=== PATIENT | female | born 1975 | race Caucasian/White ===

== ENCOUNTER 2017-05-14 15:18 | Emergency (ER) | payer MEDICAID, OTHER ==
[~2017-05-14] VITALS: Ht 162.6 cm; Wt 65.8 kg
[~2017-05-14 15:18] MED LIST: TIZA4TAB11 PO; TOPI50TA PO
[2017-05-14] MEDS ORDERED: LEVE250T2 PO (15:29)
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
[2017-05-14] MEDS ORDERED: HYDROMORPHONE 1 MG/1 ML DISP.SYRIN IM ONE (16:00)
[2017-05-14] MEDS ORDERED: PROMETHAZINE HCL 25 MG/1 ML VIAL IM ONE (16:00)
[2017-05-14] MEDS ORDERED: HYDROMORPHONE 2 MG/1 ML DISP.SYRIN ONE (16:17)
[2017-05-14] MEDS ORDERED: PROMETHAZINE HCL 25 MG/1 ML VIAL ONE (16:18)
--- NOTE | 2017-05-14 16:40 | NUR ---
pt did not feel any pain relief just upon d/c. Gave pt RX and d/c instructions, verbalized understanding.
== END 2017-05-14 16:48 | disposition home or self-care (01) ==
LOC: ER 15:18
DX: G44.009 Cluster headache syndrome, unspecified, not intractable (principal); Z88.0 Allergy status to penicillin; M54.5 Low back pain; Z90.49 Acquired absence of other specified parts of digestive tract; G40.909 Epilepsy, unspecified, not intractable, without status epilepticus
CPT/HCPCS: A4663; J1170; J2550

== ENCOUNTER 2017-07-19 17:45 | Emergency (ER) | payer OTHER ==
[~2017-07-19] VITALS: Ht 165.1 cm; Wt 65.8 kg
[~2017-07-19 17:45] MED LIST changes: +LEVE250T2 PO; -TIZA4TAB11 PO
--- NOTE | 2017-07-19 18:16 | NUR ---
US TECH AT BEDSIDE PERFORMING MSE.
[2017-07-19 18:43] LABS: BASOPHILS % (AUTO) 0.5 % (0.0-2.0); EOSINOPHILS # (AUTO) 0.1 K/uL (0.0-0.7); EOSINOPHILS % (AUTO) 1.4 % (0.0-7.0); HEMATOCRIT 41.2 % (37-47); HEMOGLOBIN 13.8 G/DL (12.0-16.0); LYMPHOCYTES # (AUTO) 2.2 K/UL (0.8-4.8); LYMPHOCYTES % (AUTO) 24.2 % (20.5-51.5); MEAN CORPUSCULAR HGB CONC 34 g/dL (32.0-37.0); MEAN CORPUSCULAR VOLUME 92.3 FL (81.0-99.0); MONOCYTES # (AUTO) 0.5 K/UL (0.1-1.30); MONOCYTES % (AUTO) 5.6 % (0.0-11.0); NEUTROPHILS # (AUTO) 6.5 K/UL (1.8-8.9); NEUTROPHILS % (AUTO) 68.3 % (38.5-71.5); PLATELET COUNT (AUTO) 274 K/UL (150-450); RED BLOOD CELL COUNT(AUTO) 4.47 MIL/UL (4.2-5.4); WHITE BLOOD COUNT (AUTO) 9.3 K/UL (4.0-11.2)
[2017-07-19 18:55] LABS: CARBON DIOXIDE 30 mmol/L (21-32); CHLORIDE 109 mmol/L (98-107); CREATININE 0.8 mg/dL (0.6-1.3); GLUCOSE 106 mg/dL (74-106); POTASSIUM 4.1 mmol/L (3.5-5.1); UREA NITROGEN, BLOOD 11 mg/dL (7-18)
[2017-07-19 19:00] LABS: ALANINE AMINOTRANSFERASE 16 U/L (14-59); ALKALINE PHOSPHATASE 71 U/L (50-136); ASPARTATE AMINOTRANSFERASE 12 U/L (15-37); BILIRUBIN,DIRECT < 0.1 mg/dL (0.0-0.2); BILIRUBIN,TOTAL 0.2 mg/dL (0.2-1.0); LIPASE 135 U/L (73-393); TOTAL PROTEIN, SERUM 6.7 g/dL (6.4-8.2)
[2017-07-19] MEDS ORDERED: KETOROLAC TROMETHAMINE 30 MG INJ IM ONE (19:15)
--- NOTE | 2017-07-19 19:20 | NUR ---
PATIENT OUT OF UNIT FOR CT SCAN VIA GURNY
[2017-07-19] MEDS ORDERED: KETOROLAC TROMETHAMINE 30 MG INJ ONE (19:30)
--- NOTE | 2017-07-19 19:40 | NUR ---
PATIENT BACK FROM CT SCAN WITH NO DISTRESS NOTED
[2017-07-19 20:16] LABS: *BILIRUBIN,URIN NEGATIVE (NEGATIVE); *BLOOD, URINE Trace-intact (NEGATIVE); *CLARITY,URINE CLEAR (CLEAR); *COLOR,URINE YELLOW (YELLOW); *KETONES,URINE NEGATIVE (NEGATIVE); *PROTEIN,URINE NEGATIVE (NEGATIVE); *UROBILINOGEN,URINE 0.2 E.U./dl (NORMAL); LEUKOCYTE ESTERASE ,URINE NEGATIVE (NEGATIVE); NITRITE, URINE NEGATIVE (NEGATIVE); UGLUCOSE NEGATIVE (NEGATIVE)
[2017-07-19 20:21] LABS: BACTERIA,URINE FEW /HPF (NONE SEEN); RBC,URINE 0-3 /HPF (0-3); SQUAMOUS EPITHELIAL CELL,UR MODERATE /HPF (NONE SEEN)
[2017-07-19] MEDS ORDERED: MORPHINE SULFATE 4 MG/1 ML DISP.SYRIN IM ONE (21:00)
[2017-07-19] MEDS ORDERED: ONDANSETRON 4 MG/2 ML VIAL IM ONE (21:00)
[2017-07-19] MEDS ORDERED: MORPHINE SULFATE 4 MG/1 ML DISP.SYRIN ONE (21:20)
[2017-07-19] MEDS ORDERED: ONDANSETRON 4 MG/2 ML VIAL ONE (21:20)
--- NOTE | 2017-07-19 21:34 | NUR ---
Patient discharged to home in stable conditon. Written and verbal after care instructions given. Patient verbalizes understanding of instructions.
[2017-07-19 21:36] VITALS: BP 128/75
== END 2017-07-19 21:36 | disposition home or self-care (01) ==
LOC: ER 17:50
DX: K59.00 Constipation, unspecified (principal); R10.32 Left lower quadrant pain; Z88.0 Allergy status to penicillin; N83.201 Unspecified ovarian cyst, right side
CPT/HCPCS: 36415; 70030-TC; 76856; 83690; 84703; 85025; A4663; J1885; J2270; J2405

== ENCOUNTER 2018-12-11 20:48 | Emergency (ER) | payer SELFPAY ==
[~2018-12-11] VITALS: Ht 162.6 cm; Wt 65.8 kg
[2018-12-11 21:20] LABS: *BILIRUBIN,URIN NEGATIVE (NEGATIVE); *BLOOD, URINE 2+ (NEGATIVE); *CLARITY,URINE SLIGHTLY CLOUDY (CLEAR); *COLOR,URINE YELLOW (YELLOW); *KETONES,URINE NEGATIVE (NEGATIVE); *UROBILINOGEN,URINE 0.2 E.U./dl (NORMAL); LEUKOCYTE ESTERASE ,URINE TRACE (NEGATIVE); NITRITE, URINE NEGATIVE (NEGATIVE); UGLUCOSE NEGATIVE (NEGATIVE)
[2018-12-11 21:27] LABS: *URINE HCG, QUAL NEGATIVE (NEGATIVE)
[2018-12-11 21:37] LABS: BACTERIA,URINE FEW /HPF (NONE SEEN); SQUAMOUS EPITHELIAL CELL,UR FEW /HPF (NONE SEEN); WBC,URINE 20-50 /HPF (0-3)
--- NOTE | 2018-12-11 21:44 | NUR ---
Pt placed in room 3A.
--- NOTE | 2018-12-11 22:15 | NUR ---
Patient discharged to home in stable conditon. Written and verbal after care instructions given. Patient verbalizes understanding of instructions.
[2018-12-11 22:16] VITALS: BP 147/86
== END 2018-12-11 22:17 | disposition home or self-care (01) ==
LOC: ER 20:48
DX: N39.0 Urinary tract infection, site not specified (principal); M54.9 Dorsalgia, unspecified; F17.200 Nicotine dependence, unspecified, uncomplicated; Z88.0 Allergy status to penicillin; Z91.012 Allergy to eggs; Z79.899 Other long term (current) drug therapy
CPT/HCPCS: 84703; 87077; 87086; A4663

== ENCOUNTER 2019-04-24 18:47 | Emergency (ER) | payer OTHER ==
[~2019-04-24] VITALS: Ht 165.1 cm; Wt 69.4 kg
[2019-04-24] MEDS ORDERED: KETOROLAC TROMETHAMINE 15 MG INJ IV ONE (19:15)
[2019-04-24] MEDS ORDERED: ONDANSETRON 4 MG/2 ML VIAL IV ONE (19:15)
[2019-04-24] MEDS ORDERED: HYDROMORPHONE 1 MG/1 ML DISP.SYRIN IV ONE ×2 (19:15→22:00)
[2019-04-24 19:19] LABS: *BILIRUBIN,URIN 1+ (NEGATIVE); *BLOOD, URINE 3+ (NEGATIVE); *KETONES,URINE NEGATIVE (NEGATIVE); LEUKOCYTE ESTERASE ,URINE TRACE (NEGATIVE); NITRITE, URINE NEGATIVE (NEGATIVE); UGLUCOSE NEGATIVE (NEGATIVE)
[2019-04-24] MEDS ORDERED: HYDROMORPHONE 1 MG/1 ML DISP.SYRIN ONE ×2 (19:23→21:56)
[2019-04-24] MEDS ORDERED: KETOROLAC TROMETHAMINE 15 MG INJ ONE (19:23)
[2019-04-24] MEDS ORDERED: ONDANSETRON 4 MG/2 ML VIAL ONE (19:24)
--- NOTE | 2019-04-24 19:25 | NUR ---
patient c/o bilateral flank pain x1 month. Patient states has Hx of kidney stones is already following up with urologist. Patient here requesting for ct scan and will follow up with urology next month.
[2019-04-24 19:26] LABS: BASOPHILS % (AUTO) 0.4 % (0.0-2.0); EOSINOPHILS # (AUTO) 0.2 K/uL (0.0-0.7); HEMATOCRIT 37.4 % (31.2-41.9); HEMOGLOBIN 12.7 g/dL (10.9-14.3); LYMPHOCYTES # (AUTO) 1.8 K/uL (20.0-40.0); LYMPHOCYTES % (AUTO) 23.3 % (20.5-51.5); MEAN CORPUSCULAR HGB CONC 34 g/dL (32.3-35.6); MEAN CORPUSCULAR VOLUME 94.2 fL (75.5-95.3); MONOCYTES # (AUTO) 0.6 K/uL (2.0-10.0); MONOCYTES % (AUTO) 7.4 % (0.0-11.0); NEUTROPHILS # (AUTO) 5.1 K/uL (1.8-8.9); NEUTROPHILS % (AUTO) 66.9 % (38.5-71.5); PLATELET COUNT (AUTO) 262 K/uL (179-408); RED BLOOD CELL COUNT(AUTO) 3.97 MIL/uL (3.63-4.92); WHITE BLOOD COUNT (AUTO) 7.6 K/uL (3.8-11.8)
[2019-04-24 19:28] LABS: *CLARITY,URINE BLOODY (CLEAR)
[2019-04-24 19:29] LABS: *COLOR,URINE Brown (YELLOW)
[2019-04-24 19:31] LABS: MUCUS,URINE MODERATE /LPF (0-FEW); RBC,URINE TNTC /HPF (0-3); SQUAMOUS EPITHELIAL CELL,UR MODERATE /HPF (NONE SEEN)
[2019-04-24 19:32] LABS: *URINE HCG, QUAL NEGATIVE (NEGATIVE)
[2019-04-24 19:36] LABS: CARBON DIOXIDE 26 mmol/L (21-32); CHLORIDE 105 mmol/L (98-107); CREATININE 0.9 mg/dL (0.6-1.3); GLUCOSE 88 mg/dL (74-106); POTASSIUM 3.8 mmol/L (3.5-5.1); UREA NITROGEN, BLOOD 17 mg/dL (7-18)
[2019-04-24 19:41] LABS: ALANINE AMINOTRANSFERASE 17 U/L (14-59); ALKALINE PHOSPHATASE 81 U/L (50-136); ASPARTATE AMINOTRANSFERASE 12 U/L (15-37); BILIRUBIN,DIRECT < 0.1 mg/dL (0.0-0.2); BILIRUBIN,TOTAL 0.1 mg/dL (0.2-1.0); LIPASE 126 U/L (73-393); TOTAL PROTEIN, SERUM 6.8 g/dL (6.4-8.2)
--- NOTE | 2019-04-24 20:43 | NUR ---
Patient out of unit for ct scan via wheelchair
--- NOTE | 2019-04-24 22:59 | NUR ---
No radiology read on ct of abdomen and pelvis. Called [facility] Hotline . Waiting for imaging read
[2019-04-24] MEDS ORDERED: CEFTRIAXONE 1 G in IV DEXTROSE 5% 50 ML IV ONE (23:30)
[2019-04-24] MEDS ORDERED: SULF1TAB48 PO (23:55)
[2019-04-25] MEDS ORDERED: CEFTRIAXONE 1 G VIAL ONE
[2019-04-25] MEDS ORDERED: HYDROMORPHONE 1 MG/1 ML DISP.SYRIN IV ONE (00:15)
[2019-04-25] MEDS ORDERED: HYDROMORPHONE 2 MG/1 ML DISP.SYRIN ONE ×2 (00:16→01:23)
--- NOTE | 2019-04-25 00:40 | NUR ---
Waiting for transfer info from case management to transfer to [facility]
--- NOTE | 2019-04-25 01:25 | NUR ---
Jake engle mangement from [facility] called back for transfer info. Patient will be going to [facility] room 2259. Call for report . Accepting MD is Ofelia Arguello
--- NOTE | 2019-04-25 01:33 | NUR ---
Called [facility] for transfer. ETA is 45mins. Trip #[id number]
--- NOTE | 2019-04-25 02:03 | NUR ---
Gave SBAR report to Chanelle Aaron from [facility]
--- NOTE | 2019-04-25 02:24 | NUR ---
Gave SBAR report to [facility] unit 115
== END 2019-04-25 02:27 | disposition short-term general hospital (02) ==
LOC: ER 18:47
DX: N20.0 Calculus of kidney (principal); N39.0 Urinary tract infection, site not specified; N13.9 Obstructive and reflux uropathy, unspecified; Z71.6 Tobacco abuse counseling; F17.290 Nicotine dependence, other tobacco product, uncomplicated; Z88.0 Allergy status to penicillin; Z91.012 Allergy to eggs; Z79.899 Other long term (current) drug therapy
CPT/HCPCS: 36415; 74176; 80048; 80076; 81000; 81001; 83690; 84703; 85025; 87086; 96365; 96375; 96376 ×2; 99285; 99406; J0696; J1170 ×4; J1885; J2405; J7060; A4663; J7030

== ENCOUNTER 2019-07-13 09:31 | Emergency (ER) | payer OTHER ==
[~2019-07-13] VITALS: Ht 162.6 cm; Wt 70.3 kg
[~2019-07-13 09:31] MED LIST changes: -LEVE250T2 PO; +SULF1TAB48 PO
[2019-07-13 09:55] LABS: *BILIRUBIN,URIN NEGATIVE (NEGATIVE); *CLARITY,URINE CLOUDY (CLEAR); *COLOR,URINE YELLOW (YELLOW); *KETONES,URINE NEGATIVE (NEGATIVE); *UROBILINOGEN,URINE 0.2 E.U./dl (NORMAL); LEUKOCYTE ESTERASE ,URINE 1+ (NEGATIVE); NITRITE, URINE NEGATIVE (NEGATIVE); UGLUCOSE NEGATIVE (NEGATIVE)
[2019-07-13 09:58] LABS: *URINE HCG, QUAL NEGATIVE (NEGATIVE)
[2019-07-13 09:59] LABS: *BLOOD, URINE TRACE (NEGATIVE)
[2019-07-13] MEDS ORDERED: ONDANSETRON ODT 4 MG TAB.RAPDIS SL ONE (10:15)
[2019-07-13 10:24] LABS: BACTERIA,URINE MODERATE /HPF (NONE SEEN)
[2019-07-13] MEDS ORDERED: ONDANSETRON ODT 4 MG TAB.RAPDIS ONE (10:24)
[2019-07-13 10:26] LABS: SQUAMOUS EPITHELIAL CELL,UR MANY /HPF (NONE SEEN)
[2019-07-13] MEDS ORDERED: OXYCODONE/APAP 5-325 MG TABLET PO ONE (10:30)
[2019-07-13] MEDS ORDERED: METOCLOPRAMIDE HCL 10 MG/2 ML VIAL IM ONE (10:30)
[2019-07-13] MEDS ORDERED: IBUPROFEN 600 MG TABLET PO ONE (10:30)
[2019-07-13] MEDS ORDERED: METOCLOPRAMIDE HCL 10 MG/2 ML VIAL ONE (10:31)
[2019-07-13] MEDS ORDERED: OXYCODONE/APAP 5-325 MG TABLET ONE (10:31)
[2019-07-13] MEDS ORDERED: IBUPROFEN 600 MG TABLET ONE (10:31)
[2019-07-13 10:32] LABS: URINE AMORPHOUS PHOSPHATES FEW /HPF
--- NOTE | 2019-07-13 11:43 | NUR ---
ER AT BEDSIDE FOR PELVIC EXAM W/ FEMALE CHAPPERONE, ANIVAL Aly RN.
[2019-07-13 11:55] VITALS: BP 133/76
--- NOTE | 2019-07-13 11:55 | NUR ---
Patient discharged to home in stable conditon. Written and verbal after care instructions given. Patient verbalizes understanding of instructions. ALL BELONGINGS W/ PT. PT SELF-AMBULATED W/O DIFFICULTY.
== END 2019-07-13 11:55 | disposition home or self-care (01) ==
LOC: ER 09:31
DX: N39.0 Urinary tract infection, site not specified (principal); R51 Headache; M54.5 Low back pain; R11.2 Nausea with vomiting, unspecified; F17.200 Nicotine dependence, unspecified, uncomplicated; Z88.0 Allergy status to penicillin; Z91.012 Allergy to eggs; Z79.899 Other long term (current) drug therapy
CPT/HCPCS: 36415; 81000; 81001; 84702; 84703; 87086; 96372; 99284; J2765; A4663; Q0162

== ENCOUNTER 2019-07-26 04:26 | Emergency (ER) | payer SELFPAY ==
[~2019-07-26] VITALS: Ht 170.2 cm; Wt 54.4 kg
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
[2019-07-26] MEDS ORDERED: diphenhydrAMINE 50 MG CAPSULE PO ONE (05:00)
[2019-07-26] MEDS ORDERED: ONDANSETRON ODT 4 MG TAB.RAPDIS SL ONE (05:00)
[2019-07-26] MEDS ORDERED: HYDROMORPHONE 1 MG/1 ML DISP.SYRIN IM ONE ×2 (05:00→05:45)
[2019-07-26] MEDS ORDERED: HYDROMORPHONE 2 MG/1 ML DISP.SYRIN ONE ×2 (05:05→05:50)
[2019-07-26] MEDS ORDERED: diphenhydrAMINE 50 MG CAPSULE ONE (05:05)
[2019-07-26] MEDS ORDERED: ONDANSETRON ODT 4 MG TAB.RAPDIS ONE (05:05)
--- NOTE | 2019-07-26 05:10 | NUR ---
patient taken down for CT scan with matt general maintenance technician
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
[2019-07-26 05:55] VITALS: BP 112/78
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
== END 2019-07-26 05:57 | disposition home or self-care (01) ==
LOC: ER 04:30
DX: S00.83XA Contusion of other part of head, initial encounter (principal); T74.61XA Adult forced labor exploitation, confirmed, initial encounter; F17.290 Nicotine dependence, other tobacco product, uncomplicated; Z71.6 Tobacco abuse counseling; Z88.0 Allergy status to penicillin; Z91.012 Allergy to eggs; Y04.2XXA Assault by strike against or bumped into by another person, initial encounter; Y93.89 Activity, other specified; Y92.89 Other specified places as the place of occurrence of the external cause; Y99.8 Other external cause status
CPT/HCPCS: 70450; 70490; 96372 ×2; 99284; 99406; J1170 ×2; Q0163; A4663; Q0162

== ENCOUNTER 2019-10-17 18:41 | Emergency (ER) | payer MEDICAID ==
[~2019-10-17] VITALS: Ht 162.6 cm; Wt 76.2 kg
[2019-10-17] MEDS ORDERED: HYDROCODONE/APAP 5-325MG TABLET PO ONE (19:30)
[2019-10-17] MEDS ORDERED: IBUPROFEN 600 MG TABLET PO ONE (19:30)
[2019-10-17] MEDS ORDERED: OXYCODONE/APAP 5-325 MG TABLET PO ONE (19:30)
[2019-10-17] MEDS ORDERED: diphenhydrAMINE 50 MG CAPSULE PO ONE (19:30)
[2019-10-17] MEDS ORDERED: OXYCODONE/APAP 5-325 MG TABLET ONE (19:43)
[2019-10-17] MEDS ORDERED: diphenhydrAMINE 25 MG CAP PO ONE (19:43)
[2019-10-17 20:22] LABS: *URINE HCG, QUAL NEGATIVE (NEGATIVE)
--- NOTE | 2019-10-17 20:42 | NUR ---
Patient discharged to home in stable conditon. Written and verbal after care instructions given. Patient verbalizes understanding of instructions. ambulatory w/ stable gait all belongings w/ pt boyfriend will drive home
[2019-10-17 20:43] VITALS: BP 143/82
== END 2019-10-17 20:58 | disposition home or self-care (01) ==
LOC: ER 18:48
DX: R05 Cough (principal); R07.89 Other chest pain; F17.200 Nicotine dependence, unspecified, uncomplicated; Z88.0 Allergy status to penicillin; Z91.012 Allergy to eggs
CPT/HCPCS: 71045; 84703; 87400; 93005; 99284; Q0163; A4663

== ENCOUNTER 2020-03-02 13:08 | Emergency (ER) | payer MEDICAID ==
[~2020-03-02] VITALS: Ht 165.1 cm; Wt 70.8 kg
--- NOTE | 2020-03-02 13:22 | NUR ---
PT IS IN ROOM #4A DR HAMEED EVALUATED THE PT.
[2020-03-02] MEDS ORDERED: [UNRECOGNIZED DRUG - OTHER] PO (13:28)
[2020-03-02] MEDS ORDERED: IBUPROFEN 800 MG TABLET PO ONE (14:00)
[2020-03-02] MEDS ORDERED: IBUPROFEN 800 MG TABLET ONE (14:03)
--- NOTE | 2020-03-02 14:49 | NUR ---
PT WAS D/C'd TO HOME. D/C INSTRUCTIONS GIVEN TO THE PT BY DR HAMEED.
[2020-03-02 14:51] VITALS: BP 132/81
== END 2020-03-02 14:52 | disposition home or self-care (01) ==
LOC: ER 13:12
DX: S93.402A Sprain of unspecified ligament of left ankle, initial encounter (principal); X50.1XXA Overexertion from prolonged static or awkward postures, initial encounter; Y92.34 Swimming pool (public) as the place of occurrence of the external cause; F17.290 Nicotine dependence, other tobacco product, uncomplicated
CPT/HCPCS: 73610; 73630

== ENCOUNTER 2020-09-13 16:59 | Emergency (ER) | payer MEDICAID ==
[~2020-09-13] VITALS: Ht 167.6 cm; Wt 72.6 kg
[~2020-09-13 16:59] MED LIST changes: -SULF1TAB48 PO; -TOPI50TA PO; +[UNRECOGNIZED DRUG - OTHER] PO
[2020-09-13] MEDS ORDERED: CEPH-570 PO (17:10)
[2020-09-13] MEDS ORDERED: TAMS-3 PO (17:10)
[2020-09-13] MEDS ORDERED: OXYC-128 PO (17:10)
[2020-09-13] MEDS ORDERED: IBUP-1957 PO (17:10)
--- NOTE | 2020-09-13 17:21 | NUR ---
PT IS IN ROOM #2B. DR MCKENZIE EVALUATED THE PT.
[2020-09-13] MEDS ORDERED: ONDANSETRON 4 MG/2 ML VIAL IV ONE ×2 (17:30→20:00)
[2020-09-13] MEDS ORDERED: HYDROMORPHONE 1 MG/1 ML DISP.SYRIN IV ONE ×2 (17:30→19:30)
[2020-09-13] MEDS ORDERED: HYDROMORPHONE 1 MG/1 ML DISP.SYRIN ONE ×2 (17:38→19:32)
[2020-09-13] MEDS ORDERED: ONDANSETRON 4 MG/2 ML VIAL ONE ×2 (17:42→19:50)
[2020-09-13 17:51] LABS: BASOPHILS # (AUTO) 0.1 K/uL (0.0-8.0); BASOPHILS % (AUTO) 1.4 % (0.0-2.0); EOSINOPHILS # (AUTO) 0.1 K/uL (0.0-0.7); EOSINOPHILS % (AUTO) 1.6 % (0.0-7.0); HEMATOCRIT 41.1 % (31.2-41.9); HEMOGLOBIN 13.8 g/dL (10.9-14.3); LYMPHOCYTES # (AUTO) 1.8 K/uL (20.0-40.0); LYMPHOCYTES % (AUTO) 20.1 % (20.5-51.5); MEAN CORPUSCULAR HEMOGLOBIN 30.9 uug (24.7-32.8); MEAN CORPUSCULAR HGB CONC 34 g/dL (32.3-35.6); MEAN CORPUSCULAR VOLUME 92.2 fL (75.5-95.3); MONOCYTES # (AUTO) 0.5 K/uL (2.0-10.0); NEUTROPHILS # (AUTO) 6.2 K/uL (1.8-8.9); NEUTROPHILS % (AUTO) 70.9 % (38.5-71.5); PLATELET COUNT (AUTO) 305 K/uL (179-408); RED BLOOD CELL COUNT(AUTO) 4.46 MIL/uL (3.63-4.92); WHITE BLOOD COUNT (AUTO) 8.7 K/uL (3.8-11.8)
[2020-09-13 17:59] LABS: *BILIRUBIN,URIN NEGATIVE (NEGATIVE); *BLOOD, URINE 2+ (NEGATIVE); *CLARITY,URINE SLIGHTLY CLOUDY (CLEAR); *COLOR,URINE YELLOW (YELLOW); *KETONES,URINE NEGATIVE (NEGATIVE); *UROBILINOGEN,URINE 0.2 E.U./dl (NORMAL); LEUKOCYTE ESTERASE ,URINE TRACE (NEGATIVE); NITRITE, URINE NEGATIVE (NEGATIVE); PH,URINE 6.5 (5.0-8.0); UGLUCOSE NEGATIVE (NEGATIVE)
[2020-09-13 18:04] LABS: ALANINE AMINOTRANSFERASE 19 U/L (14-59); ALKALINE PHOSPHATASE 101 U/L (50-136); ASPARTATE AMINOTRANSFERASE 20 U/L (15-37); BILIRUBIN,DIRECT < 0.1 mg/dL (0.0-0.2); BILIRUBIN,TOTAL 0.2 mg/dL (0.2-1.0); CARBON DIOXIDE 25 mmol/L (21-32); CHLORIDE 104 mmol/L (98-107); CREATININE 1.1 mg/dL (0.6-1.3); GLUCOSE 112 mg/dL (74-106); TOTAL PROTEIN, SERUM 6.8 g/dL (6.4-8.2); UREA NITROGEN, BLOOD 12 mg/dL (7-18)
[2020-09-13 18:05] LABS: *URINE HCG, QUAL NEGATIVE (NEGATIVE)
[2020-09-13 18:06] LABS: POTASSIUM 2.8 mmol/L (3.5-5.1)
[2020-09-13] MEDS ORDERED: POTASSIUM CHLORIDE 20 MEQ TAB.PRT.SR PO ONE (18:15)
[2020-09-13] MEDS ORDERED: TAMSULOSIN HCL 0.4 MG CAP.SR.24H PO ONE (18:15)
[2020-09-13] MEDS ORDERED: POTASSIUM CHLORIDE 20 MEQ TAB.PRT.SR ONE (18:32)
[2020-09-13] MEDS ORDERED: TAMSULOSIN HCL 0.4 MG CAP.SR.24H ONE (18:32)
[2020-09-13 19:18] LABS: BACTERIA,URINE FEW /HPF (NONE SEEN); RBC,URINE 20-50 /HPF (0-3); SQUAMOUS EPITHELIAL CELL,UR FEW /HPF (NONE SEEN)
--- NOTE | 2020-09-13 19:22 | NUR ---
RECEIVED PATIENT DURING SHIFT REPORT FROM AMI LORENZO
--- NOTE | 2020-09-13 21:00 | NUR ---
Patient noted ambulating and urinating, no complaints of pain at this time
--- NOTE | 2020-09-13 21:13 | NUR ---
Patient refused covid swab at this time
--- NOTE | 2020-09-13 22:10 | NUR ---
Patient refused to be transferred to [facility] per insurance, Patient discharged to home in stable condition. Written and verbal after care instructions given. Instructed to follow up with urologist, referral given to patient by [facility], able to ambulate, took all belongings. Rx given.Patient verbalizes understanding of instructions. Stressed follow up or return to ER for worsening s/s.
[2020-09-13 22:15] VITALS: BP 154/102
== END 2020-09-13 22:10 | disposition home or self-care (01) ==
LOC: ER 17:01
DX: N13.2 Hydronephrosis with renal and ureteral calculous obstruction (principal); R07.9 Chest pain, unspecified; Z87.442 Personal history of urinary calculi; R94.31 Abnormal electrocardiogram [ECG] [EKG]; F17.200 Nicotine dependence, unspecified, uncomplicated; R03.0 Elevated blood-pressure reading, without diagnosis of hypertension
CPT/HCPCS: 36415; 71045; 76770; 80048; 80076; 81001; 84484 ×2; 84702; 84703; 85025; 85730; 87086; 93005 ×2; 96374; 96375; 96376; 99285; J1170 ×2; J2405 ×2; 70030-TC; J7030

== ENCOUNTER 2020-12-22 15:27 | Emergency (ER) | payer MEDICAID ==
[~2020-12-22] VITALS: Ht 162.6 cm; Wt 69.4 kg
[~2020-12-22 15:27] MED LIST changes: +CEPH-570 PO; +IBUP-1957 PO; +OXYC-128 PO; +TAMS-3 PO
[2020-12-22] MEDS ORDERED: diphenhydrAMINE 50 MG/1 ML VIAL ONE (15:58)
[2020-12-22] MEDS ORDERED: METOCLOPRAMIDE HCL 10 MG/2 ML VIAL ONE (15:58)
[2020-12-22] MEDS ORDERED: OXYCODONE/APAP 5-325 MG TABLET PO ONE (16:00)
[2020-12-22] MEDS ORDERED: METOCLOPRAMIDE HCL 10 MG/2 ML VIAL IM ONE (16:00)
[2020-12-22] MEDS ORDERED: diphenhydrAMINE 50 MG/1 ML VIAL IM ONE (16:00)
[2020-12-22] MEDS ORDERED: OXYCODONE/APAP 5-325 MG TABLET ONE (16:09)
--- NOTE | 2020-12-22 16:27 | NUR ---
Patient discharged to home in stable condition. Written and verbal after care instructions given. Patient verbalizes understanding of instructions. Stressed follow up or return to ER for worsening s/s.pt walks in steady gait. pt says feels better. pt is not driving, boy friend picks up the pt.
[2020-12-22] MEDS ORDERED: OXYC-128 PO (16:31)
[2020-12-22] MEDS ORDERED: METO-295 PO (16:31)
[2020-12-22 16:48] VITALS: BP 129/77
== END 2020-12-22 16:48 | disposition home or self-care (01) ==
LOC: ER 15:27
DX: G44.009 Cluster headache syndrome, unspecified, not intractable (principal); G89.29 Other chronic pain; M54.2 Cervicalgia; Z87.820 Personal history of traumatic brain injury; Z88.0 Allergy status to penicillin; Z91.012 Allergy to eggs; F17.200 Nicotine dependence, unspecified, uncomplicated; Z87.442 Personal history of urinary calculi
CPT/HCPCS: 96372 ×2; 99284; J1200; J2765; A4663

== ENCOUNTER 2021-04-15 12:58 | Emergency (ER) | payer MEDICAID ==
[~2021-04-15] VITALS: Ht 162.6 cm; Wt 68.0 kg
[~2021-04-15 12:58] MED LIST changes: +METO-295 PO
--- NOTE | 2021-04-15 13:08 | NUR ---
Female customs director accompanied female patient for (Dr Bernard).
[2021-04-15] MEDS ORDERED: IV NORMAL SALINE 1000 ML BAG IV ONE (13:15)
[2021-04-15] MEDS ORDERED: ACETAMINOPHEN ES 500 MG TABLET PO ONE (13:15)
[2021-04-15] MEDS ORDERED: ACETAMINOPHEN ES 500 MG TABLET ONE (13:22)
[2021-04-15] MEDS ORDERED: METO-295 PO (13:27)
[2021-04-15 13:30] LABS: HEMATOCRIT 44.7 % (31.2-41.9); MEAN CORPUSCULAR HEMOGLOBIN 30.3 uug (24.7-32.8); MEAN CORPUSCULAR VOLUME 92.3 fL (75.5-95.3); PLATELET COUNT (AUTO) 261 K/uL (179-408)
[2021-04-15] MEDS ORDERED: METOCLOPRAMIDE HCL 10 MG/2 ML VIAL IV ONE (13:30)
[2021-04-15] MEDS ORDERED: ONDANSETRON 4 MG/2 ML VIAL IV ONE (13:30)
[2021-04-15] MEDS ORDERED: METOCLOPRAMIDE HCL 10 MG/2 ML VIAL ONE (13:31)
[2021-04-15 13:32] LABS: *URINE HCG, QUAL NEGATIVE (NEGATIVE)
[2021-04-15 13:33] LABS: *BILIRUBIN,URIN NEGATIVE (NEGATIVE); *BLOOD, URINE 2+ (NEGATIVE); *CLARITY,URINE CLEAR (CLEAR); *COLOR,URINE YELLOW (YELLOW); *KETONES,URINE NEGATIVE (NEGATIVE); *UROBILINOGEN,URINE 0.2 E.U./dl (NORMAL); LEUKOCYTE ESTERASE ,URINE 2+ (NEGATIVE); NITRITE, URINE NEGATIVE (NEGATIVE); UGLUCOSE NEGATIVE (NEGATIVE)
--- NOTE | 2021-04-15 14:25 | NUR ---
chaperoned us being done.
[2021-04-15] MEDS ORDERED: IBUP-1955 PO (14:45)
--- NOTE | 2021-04-15 14:56 | NUR ---
Patient discharged to home in stable condition. Written and verbal after care instructions given. Patient verbalizes understanding of instructions. Stressed follow up or return to ER for worsening s/s.
[2021-04-15 14:57] VITALS: BP 121/77
[2021-04-15 15:35] LABS: BACTERIA,URINE MODERATE /HPF (NONE SEEN); SQUAMOUS EPITHELIAL CELL,UR MODERATE /HPF (NONE SEEN); WBC,URINE 20-50 /HPF (0-3)
== END 2021-04-15 14:58 | disposition home or self-care (01) ==
LOC: ER 12:58
DX: Z32.02 Encounter for pregnancy test, result negative (principal); R51.9 Headache, unspecified; Z88.0 Allergy status to penicillin; Z91.012 Allergy to eggs; G89.29 Other chronic pain; M54.9 Dorsalgia, unspecified; Z87.820 Personal history of traumatic brain injury
CPT/HCPCS: 36415; 76856; 81001; 84702; 84703; 85025; 87086; 96361; 96374; 99284; J2765; 87077; A4663; A9150; J7030

== ENCOUNTER 2021-05-25 13:04 | Emergency (ER) | payer MEDICAID ==
[~2021-05-25] VITALS: Ht 162.6 cm; Wt 68.0 kg
[~2021-05-25 13:04] MED LIST changes: +IBUP-1955 PO
--- NOTE | 2021-05-25 13:15 | NUR ---
Berger placed per MD orders for urinary retention as stated by patient
[2021-05-25] MEDS ORDERED: ONDANSETRON 4 MG/2 ML VIAL IV ONE (14:00)
[2021-05-25] MEDS ORDERED: KETOROLAC TROMETHAMINE 30 MG INJ IVP ONE (14:00)
[2021-05-25] MEDS ORDERED: IV NORMAL SALINE 1000 ML BAG IV ONE (14:00)
[2021-05-25] MEDS ORDERED: KETOROLAC TROMETHAMINE 30 MG INJ ONE (14:16)
[2021-05-25] MEDS ORDERED: ONDANSETRON 4 MG/2 ML VIAL ONE (14:16)
[2021-05-25 14:41] LABS: HEMATOCRIT 41.9 % (31.2-41.9); MEAN CORPUSCULAR VOLUME 92.4 fL (75.5-95.3); PLATELET COUNT (AUTO) 258 K/uL (179-408)
[2021-05-25 14:53] LABS: BILIRUBIN,DIRECT 0.1 mg/dL (0.0-0.2); BILIRUBIN,TOTAL 0.2 mg/dL (0.2-1.0); POTASSIUM 3.1 mmol/L (3.5-5.1)
[2021-05-25 14:58] LABS: *BILIRUBIN,URIN NEGATIVE (NEGATIVE); *BLOOD, URINE 2+ (NEGATIVE); *COLOR,URINE YELLOW (YELLOW); *KETONES,URINE NEGATIVE (NEGATIVE); *UROBILINOGEN,URINE 0.2 E.U./dl (NORMAL); LEUKOCYTE ESTERASE ,URINE 1+ (NEGATIVE); NITRITE, URINE POSITIVE (NEGATIVE); UGLUCOSE NEGATIVE (NEGATIVE)
[2021-05-25 14:59] LABS: *URINE HCG, QUAL NEGATIVE (NEGATIVE)
[2021-05-25 15:03] LABS: *CLARITY,URINE HAZY (CLEAR); BACTERIA,URINE MANY /HPF (NONE SEEN); RBC,URINE 20-50 /HPF (0-3); SQUAMOUS EPITHELIAL CELL,UR FEW /HPF (NONE SEEN)
[2021-05-25] MEDS ORDERED: MORPHINE SULFATE 4 MG/1 ML DISP.SYRIN ONE ×2 (15:15→16:29)
[2021-05-25] MEDS ORDERED: CEFTRIAXONE 1 G in IV DEXTROSE 5% 50 ML IV ONE (16:15)
[2021-05-25] MEDS ORDERED: MORPHINE SULFATE 4 MG/1 ML DISP.SYRIN IV ONE ×2 (16:15)
[2021-05-25] MEDS ORDERED: CEFTRIAXONE /D5W 50ML IVPB **ER PYXIS IV ONE (16:29)
[2021-05-25] MEDS ORDERED: POTASSIUM CHLORIDE 20 MEQ TAB.PRT.SR PO ONE (16:30)
[2021-05-25] MEDS ORDERED: MAGNESIUM OXIDE 250 MG TABLET PO SCH (16:30)
[2021-05-25] MEDS ORDERED: POTASSIUM CHLORIDE 20 MEQ TAB.PRT.SR ONE ×2 (17:05→17:06)
[2021-05-25] MEDS ORDERED: MAGNESIUM OXIDE 400 MG TABLET ONE (17:05)
--- NOTE | 2021-05-25 17:41 | NUR ---
Dr. Rigoberto Peterson from [facility] spoke with Dr. Goldsmith via telephone.
--- NOTE | 2021-05-25 17:48 | NUR ---
Patient noted resting in bed, no verbal ques of pain at this time
[2021-05-25] MEDS ORDERED: ONDA4TAB11 PO (17:58)
[2021-05-25] MEDS ORDERED: HYDR-4209 PO ×2 (17:58→18:31)
--- NOTE | 2021-05-25 18:41 | NUR ---
[employer] arranged home health nurse to go to patient home and administer IV antibiotics, 20 gauge IV in patient right wrist left intact per MD orders, Patient discharged to home in stable condition. Written and verbal after care instructions given. Took all belongings, Able to ambulate with steady gait. Patient verbalizes understanding of instructions. Stressed follow up or return to ER for worsening s/s.
[2021-05-25 18:47] VITALS: BP 127/70
== END 2021-05-25 18:40 | disposition home health service (06) ==
LOC: ER 13:04
DX: N13.2 Hydronephrosis with renal and ureteral calculous obstruction (principal); N39.0 Urinary tract infection, site not specified; G89.29 Other chronic pain; M54.9 Dorsalgia, unspecified; Z88.0 Allergy status to penicillin; Z91.012 Allergy to eggs
CPT/HCPCS: 36415; 74176; 80048; 80076; 81001; 83690; 84702; 84703; 85025; 87086; 96361; 96365; 96375; 99284; J0696; J2270 ×2; J2405; 87077; J1885; J7030

== ENCOUNTER 2021-12-17 08:30 | Emergency (ER) | payer MEDICAID ==
[~2021-12-17] VITALS: Ht 160 cm; Wt 68.5 kg
[~2021-12-17 08:30] MED LIST changes: +HYDR-4209 PO; +ONDA4TAB11 PO
--- NOTE | 2021-12-17 08:54 | NUR ---
pt c/o pounding, throbbing MARIN on the frontal area with a scale of 8/10, fatigue that makes pt fall asleep in the middle of the day, vivid dreams, N/V in the last 5 days (last emesis was 12/16/21). lower back dull pain with a scale of 7/10. pt denied SOB and chest pain
[2021-12-17 09:15] LABS: *BILIRUBIN,URIN NEGATIVE (NEGATIVE); *BLOOD, URINE 1+ (NEGATIVE); *CLARITY,URINE CLEAR (CLEAR); *COLOR,URINE YELLOW (YELLOW); *KETONES,URINE NEGATIVE (NEGATIVE); *UROBILINOGEN,URINE 0.2 E.U./dl (NORMAL); LEUKOCYTE ESTERASE ,URINE 1+ (NEGATIVE); NITRITE, URINE NEGATIVE (NEGATIVE); PH,URINE 6.5 (5.0-8.0); UGLUCOSE NEGATIVE (NEGATIVE)
[2021-12-17] MEDS ORDERED: METOCLOPRAMIDE HCL 10 MG/2 ML VIAL IV ONE (09:15)
[2021-12-17] MEDS ORDERED: IV NORMAL SALINE 1000 ML BAG IV ONE (09:15)
[2021-12-17] MEDS ORDERED: METOCLOPRAMIDE HCL 10 MG/2 ML VIAL ONE (09:30)
[2021-12-17 09:41] LABS: MEAN CORPUSCULAR HEMOGLOBIN 31.1 uug (24.7-32.8); MEAN CORPUSCULAR VOLUME 91.1 fL (75.5-95.3); PLATELET COUNT (AUTO) 302 K/uL (179-408)
[2021-12-17 09:49] LABS: CREATININE 0.9 mg/dL (0.6-1.3); POTASSIUM 3.2 mmol/L (3.5-5.1)
[2021-12-17 09:54] LABS: BILIRUBIN,DIRECT 0.1 mg/dL (0.0-0.2); BILIRUBIN,TOTAL 0.3 mg/dL (0.2-1.0); TOTAL PROTEIN, SERUM 7.9 g/dL (6.4-8.2)
--- NOTE | 2021-12-17 09:59 | NUR ---
Female field advisor accompanied female patient during US
[2021-12-17] MEDS ORDERED: KETOROLAC TROMETHAMINE 15 MG INJ IVP ONE (10:15)
[2021-12-17] MEDS ORDERED: KETOROLAC TROMETHAMINE 15 MG INJ ONE (10:26)
[2021-12-17] MEDS ORDERED: CEFTRIAXONE 2 G in IV DEXTROSE 5% 100 ML IV ONE (11:00)
[2021-12-17] MEDS ORDERED: CEFTRIAXONE 1 G VIAL ONE (11:12)
[2021-12-17] MEDS ORDERED: HYDR-3972 PO (11:18)
[2021-12-17] MEDS ORDERED: CEPH500C2 PO (11:18)
--- NOTE | 2021-12-17 11:21 | NUR ---
pt still in pain. notified Dr Cat
[2021-12-17] MEDS ORDERED: HYDROMORPHONE 1 MG/1 ML DISP.SYRIN IV ONE (11:30)
[2021-12-17] MEDS ORDERED: ONDANSETRON 4 MG/2 ML VIAL IV ONE (11:30)
--- NOTE | 2021-12-17 11:30 | NUR ---
pt's HR is between 40-55bpm. notified Dr Cat
[2021-12-17] MEDS ORDERED: HYDROMORPHONE 1 MG/1 ML DISP.SYRIN ONE (11:41)
[2021-12-17] MEDS ORDERED: ONDANSETRON 4 MG/2 ML VIAL ONE (11:51)
--- NOTE | 2021-12-17 11:55 | NUR ---
PATIENT IS PAIN FREE AT THIS TIME.
--- NOTE | 2021-12-17 11:58 | NUR ---
Patient discharged to home in stable condition. Instructed not to drive. Written and verbal after care instructions given. Patient verbalizes understanding of instructions. Stressed follow up or return to ER for worsening s/s.
[2021-12-17 12:01] VITALS: BP 130/68
[2021-12-17 13:51] LABS: BACTERIA,URINE FEW /HPF (NONE SEEN); RBC,URINE 0-3 /HPF (0-3); SQUAMOUS EPITHELIAL CELL,UR MODERATE /HPF (NONE SEEN); WBC,URINE 0-3 /HPF (0-3)
== END 2021-12-17 12:02 | disposition home or self-care (01) ==
LOC: ER 08:30
DX: N12 Tubulo-interstitial nephritis, not specified as acute or chronic (principal); R51.9 Headache, unspecified; Z87.442 Personal history of urinary calculi; Z87.440 Personal history of urinary (tract) infections
CPT/HCPCS: 36415; 70450; 76770; 76856; 80048; 80076; 81001; 83690; 84702; 85025; 87086; 96361; 96365; 96375; 99285; J0696; J1170; J1885; J2405; J2765; J7060; A4663; J7030

== ENCOUNTER 2024-10-01 11:20 | Emergency (ER) | payer BC, MEDICAID ==
[~2024-10-01] VITALS: Ht 165.1 cm; Wt 70.8 kg
[~2024-10-01 11:20] MED LIST changes: +CEPH500C2 PO; +HYDR-3972 PO
[2024-10-01 13:03] LABS: BASOPHILS % (AUTO) 0.3 % (0.0-2.0); EOSINOPHILS # (AUTO) 0.3 K/uL (0.0-0.7); EOSINOPHILS % (AUTO) 2.3 % (0.0-7.0); HEMATOCRIT 42.9 % (31.2-41.9); HEMOGLOBIN 14.4 g/dL (10.9-14.3); LYMPHOCYTES # (AUTO) 1.8 K/uL (0.8-4.8); LYMPHOCYTES % (AUTO) 15.8 % (20.5-51.5); MEAN CORPUSCULAR HGB CONC 34 g/dL (32.3-35.6); MONOCYTES # (AUTO) 0.7 K/uL (0.1-1.30); NEUTROPHILS # (AUTO) 8.5 K/uL (1.8-8.9); NEUTROPHILS % (AUTO) 75.6 % (38.5-71.5); PLATELET COUNT (AUTO) 259 K/uL (179-408); RED BLOOD CELL COUNT(AUTO) 4.66 MIL/uL (3.63-4.92); RED CELL DISTRIBUTION WIDTH 14.1 % (12.3-17.7); WHITE BLOOD COUNT (AUTO) 11.3 K/uL (3.8-11.8)
[2024-10-01 13:06] LABS: DIFFERENTIAL COMMENT 1
[2024-10-01] MEDS ORDERED: HYDROMORPHONE 1 MG/1 ML DISP.SYRIN ONE ×3 (13:10→17:41)
[2024-10-01] MEDS ORDERED: ONDANSETRON 4 MG/2 ML VIAL ONE (13:10)
[2024-10-01 13:12] LABS: CALCIUM 9.1 mg/dL (8.5-10.1); CARBON DIOXIDE 26 mmol/L (21-32); CHLORIDE 107 mmol/L (98-107); CREATININE 0.9 mg/dL (0.6-1.3); GLUCOSE 95 mg/dL (74-106); POTASSIUM 3.6 mmol/L (3.5-5.1); SODIUM SERUM 144 mmol/L (136-145); UREA NITROGEN, BLOOD 11 mg/dL (7-18)
[2024-10-01] MEDS: ONDANSETRON 4 MG/2 ML VIAL IV ONE (13:13)
[2024-10-01] MEDS: HYDROMORPHONE 1 MG/1 ML DISP.SYRIN IV ONE ×3 (13:14→17:45)
[2024-10-01 13:20] LABS: ALANINE AMINOTRANSFERASE 23 U/L (14-59); ALBUMIN 3.6 g/dL (3.4-5.0); ALKALINE PHOSPHATASE 122 U/L (50-136); ASPARTATE AMINOTRANSFERASE 16 U/L (15-37); BILIRUBIN,DIRECT < 0.1 mg/dL (0.0-0.2); BILIRUBIN,TOTAL 0.4 mg/dL (0.2-1.0); LIPASE 29 U/L (16-77); TOTAL PROTEIN, SERUM 7.5 g/dL (6.4-8.2)
[2024-10-01] MEDS ORDERED: OXYC-128 PO (17:22)
[2024-10-01 17:48] VITALS: BP 119/77; O2SAT 99
== END 2024-10-01 17:56 | disposition home or self-care (01) ==
LOC: ER 11:20
DX: R10.11 Right upper quadrant pain (principal); F17.200 Nicotine dependence, unspecified, uncomplicated; G89.29 Other chronic pain; Z87.440 Personal history of urinary (tract) infections; Z87.442 Personal history of urinary calculi; Z87.820 Personal history of traumatic brain injury; Z90.49 Acquired absence of other specified parts of digestive tract; Z88.0 Allergy status to penicillin
CPT/HCPCS: 36415; 71045; 83690; 84484; 85025; 85730; A4606; A4663; J1171; J2405

== ENCOUNTER 2024-12-21 20:42 | Emergency (ER) | payer MEDICAID ==
[~2024-12-21] VITALS: Ht 170.2 cm; Wt 72.6 kg
[2024-12-21] MEDS: KETOROLAC TROMETHAMINE 15 MG INJ IVP ONE (23:00)
[2024-12-21] MEDS ORDERED: METOCLOPRAMIDE HCL 10 MG/2 ML VIAL ONE (23:33)
[2024-12-21] MEDS ORDERED: KETOROLAC TROMETHAMINE 15 MG INJ ONE (23:33)
[2024-12-22] MEDS: METOCLOPRAMIDE HCL 10 MG/2 ML VIAL IV ONE (00:17)
[2024-12-22 00:40] VITALS: BP 145/89; TEMP 97.8; O2SAT 98
== END 2024-12-22 00:40 | disposition left against medical advice (07) ==
LOC: ER 21:06
DX: G44.009 Cluster headache syndrome, unspecified, not intractable (principal); N23 Unspecified renal colic; F17.200 Nicotine dependence, unspecified, uncomplicated; Z87.440 Personal history of urinary (tract) infections; Z87.442 Personal history of urinary calculi; Z87.820 Personal history of traumatic brain injury; Z90.49 Acquired absence of other specified parts of digestive tract; Z60.2 Problems related to living alone; Z88.0 Allergy status to penicillin
CPT/HCPCS: 99285; 76770; 96372; J2765; A4606; A4663; J1885